=== PATIENT | female | born 1985 | race Two or more races ===

== ENCOUNTER 2021-12-18 02:12 | Emergency (ER) | payer OTHER ==
[~2021-12-18] VITALS: Ht 172.7 cm; Wt 86.2 kg
[2021-12-18] MEDS ORDERED: PROTONIX40 MG PO (05:06)
== END 2021-12-18 05:20 | disposition home or self-care (01) ==
LOC: ED 02:12
DX: R10.10 Upper abdominal pain, unspecified (principal); R11.2 Nausea with vomiting, unspecified
CPT/HCPCS: 80053; 80503; 81001; 83690; 84703; 85025; 96374; 96375; 99284-25; A9270; C9113; J1885; J2405; J7030